=== PATIENT | female | born 1990 ===

== ENCOUNTER 2022-04-23 23:50 | Inpatient (IN) | payer OTHER, SELFPAY ==
[2022-04-24] MEDS: OLANZapine 10 MG TABLET PO (01:33)
[2022-04-24] MEDS: LORazepam 1 MG TABLET 2 MG PO (01:33)
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
[2022-04-24 06:00] VITALS: BP 122/80; PULSE 110; RESP 20; TEMP 37.1; O2SAT 99
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
--- NOTE | 2022-04-24 10:23 | HO.PSYADMNOT ---
HPI Date of Service: 04/24/22 Chief Complaint: Bipolar/Disorder Sources of Information: patient interviewed, chart reviewed and crisis/core team assessment reviewed HPI Subjective Notes: Carlson Warning and Conditional Voluntary Meds/Allergies Allergies Allergies Allergy/AdvReac Type Severity Reaction Status Date / Time tomato Allergy Intermediate Unknown Verified 04/24/22 01:05 strawberry Allergy Unknown Unknown Verified 04/24/22 01:05 sulfamethoxazole AdvReac Severe Unknown Verified 04/24/22 01:02 [From Bactrim] trimethoprim [From Bactrim] AdvReac Severe Unknown Verified 04/24/22 01:02
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
[2022-04-24 21:05] VITALS: BP 117/77; PULSE 107; TEMP 36.2; O2SAT 100
[2022-04-25] MEDS: traZODone HCL 100 MG TABLET PO (02:13)
[2022-04-25] MEDS: OLANZapine 5 MG TABLET PO ×3 (02:13→15:57)
[2022-04-25] MEDS: hydrOXYzine HCL 50 MG TABLET PO ×2 (02:20→15:57)
[2022-04-25] MEDS: Acetaminophen 325 MG TABLET 650 MG PO (02:22)
--- NOTE | 2022-04-25 04:16 | PC.NURSE ---
change in check status-patient with racing thoughts. appears to be responding to I.S. and had little relief from oral medications administered on PRN basis. exhibits racing, paranoid thoughts. is yelling out and whistling for a dog. yelling out ''it's my God given right to have a dog, go fucking get one for me'' is in constant dialogue. yelling out. statements at time make no sense and difficult to follow. difficult to console. mood lability persists from agitation to tearfulness. disruptive to roommate. swearing. swearing as she points up her middle finger. had episode of spitting on floor as if looking at someone and yelling. impulsive. place on 1:1 status.
--- NOTE | 2022-04-25 05:55 | PC.NURSE ---
patient continues with c/o of L foot pain. on further inspection a large bruise is noted outer aspect l foot.
[2022-04-25 08:25] LABS: Alanine Aminotransferase 23 U/L (0-31); Albumin Level 4.4 g/dL (3.5-5.0); Alkaline Phosphatase 58 U/L (39-117); Anion Gap 15 (12-20); Aspartate Amino Transferase 22 U/L (5-31); Bilirubin Total 0.8 mg/dL (0.0-1.0); Blood Urea Nitrogen 19 mg/dL (9-16); Calcium 9.1 mg/dL (8.4-10.2); Carbon Dioxide 22 mmol/L (22-29); Chloride 105 mmol/L (96-108); Cholesterol 113 mg/dL; Estimated Glomerular Filt Rate > 60; Glucose Fasting 128 mg/dL (60-99); HDL Cholesterol 35 mg/dL; LDL Cholesterol Calculated 69 mg/dl; Potassium 3.8 mmol/L (3.3-5.1); Sodium 138 mmol/L (135-145); Total Protein 7.3 g/dL (6.5-8.0); Triglycerides 45 mg/dL
[2022-04-25 08:31] LABS: Estimated Average Glucose 97 mg/dL
[2022-04-25 08:45] LABS: Thyroid Stimulating Hormone 0.61 uIU/mL (0.32-4.0)
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
[2022-04-25] MEDS: LORazepam 1 MG TABLET 2 MG PO ×2 (16:52→23:22)
[2022-04-25 23:00] VITALS: BP 124/63; PULSE 81; TEMP 36.7; O2SAT 95
[2022-04-25] MEDS: OLANZapine 10 MG TABLET 20 MG PO (23:21)
[2022-04-26 08:00] VITALS: BP 113/81; PULSE 112; RESP 20; TEMP 36.8; O2SAT 99
[2022-04-26] MEDS: LORazepam 1 MG TABLET 2 MG PO ×4 (08:52→22:29)
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
[2022-04-26] MEDS: Acetaminophen 325 MG TABLET 650 MG PO (17:23)
[2022-04-26 22:28] VITALS: BP 129/83; PULSE 90; RESP 20; TEMP 36.3; O2SAT 100
[2022-04-26] MEDS: OLANZapine 10 MG TABLET 20 MG PO (22:29)
[2022-04-27] MEDS: hydrOXYzine HCL 50 MG TABLET PO ×2 (01:12→20:39)
[2022-04-27] MEDS: traZODone HCL 100 MG TABLET PO (01:12)
[2022-04-27 06:32] LABS: Folate 10.4 ng/mL (> or = 4.0); Vitamin B12 345 pg/mL (200-900)
[2022-04-27] MEDS: LORazepam 1 MG TABLET 2 MG PO ×3 (08:29→17:01)
[2022-04-27 08:30] VITALS: BP 119/84; PULSE 98; RESP 17; TEMP 36.6; O2SAT 99
[2022-04-27] MEDS: Acetaminophen 325 MG TABLET 650 MG PO (09:48)
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
[2022-04-27 18:44] VITALS: BP 123/68; PULSE 87; RESP 15; TEMP 36.6; O2SAT 100
[2022-04-27] MEDS: OLANZapine ODT 10 MG TAB.RAPDIS 20 MG TRANSLINGU (20:39)
[2022-04-27] MEDS: LORazepam 1 MG TABLET PO (20:39)
[2022-04-28 08:20] VITALS: BP 104/68; PULSE 83; RESP 16; TEMP 36.7; O2SAT 98
[2022-04-28] MEDS: LORazepam 1 MG TABLET PO ×4 (08:30→22:09)
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
[2022-04-28 20:33] VITALS: BP 128/77; PULSE 112; TEMP 36.9; O2SAT 99
[2022-04-28] MEDS: OLANZapine ODT 10 MG TAB.RAPDIS 20 MG TRANSLINGU (22:09)
[2022-04-29] MEDS: OLANZapine 5 MG TABLET PO (00:36)
[2022-04-29] MEDS: hydrOXYzine HCL 50 MG TABLET PO (00:36)
[2022-04-29] MEDS: traZODone HCL 100 MG TABLET PO ×2 (02:33→22:36)
[2022-04-29 08:15] VITALS: BP 122/82; PULSE 92; RESP 16; TEMP 36.6; O2SAT 100
[2022-04-29] MEDS: LORazepam 1 MG TABLET PO ×4 (08:56→22:36)
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
[2022-04-29 18:15] LABS: Appearance Urine HAZY; Color Urine STRAW; Glucose Urine UA NEG (NEG); Leukocyte Esterase Urine 1+ (NEG); Nitrite Urine NEG (NEG); PH 6.5 (5.0-8.0); Specific Gravity - Urine 1.015 (1.005-1.025); UACC Culture Trigger YES; Urine Blood 3+ (NEG); Urine Ketones NEG (NEG); Urine Protein NEG (NEG-TRACE)
[2022-04-29 18:17] LABS: UPreg QC Valid YES; Urine Pregnancy NEGATIVE (NEGATIVE)
[2022-04-29 18:21] LABS: Bacteria Urine 3+ /LPF; Squamous Epithelial Cell Urine 3+ /LPF
[2022-04-29 18:22] LABS: UACC CULT YES
[2022-04-29 22:06] VITALS: BP 111/75; PULSE 90; RESP 16; TEMP 36.6; O2SAT 99
[2022-04-29] MEDS: OLANZapine ODT 10 MG TAB.RAPDIS 20 MG TRANSLINGU (22:36)
[2022-04-30] MEDS: LORazepam 1 MG TABLET PO ×4 (08:28→21:21)
[2022-04-30 08:30] VITALS: BP 116/62; PULSE 97; RESP 16; TEMP 36.7; O2SAT 97
[2022-04-30 12:58] VITALS: PULSE 119
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
[2022-04-30 18:00] VITALS: BP 109/75; PULSE 118; RESP 16; TEMP 36.6; O2SAT 99
[2022-04-30] MEDS: OLANZapine ODT 10 MG TAB.RAPDIS 20 MG TRANSLINGU (21:21)
[2022-05-01] MEDS: traZODone HCL 100 MG TABLET PO ×2 (02:31→23:06)
[2022-05-01] MEDS: LORazepam 1 MG TABLET PO ×5 (07:44→23:06)
[2022-05-01 07:47] VITALS: BP 117/76; PULSE 129; RESP 17; TEMP 36.7; O2SAT 99
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
[2022-05-01 20:00] VITALS: BP 119/68; PULSE 109; RESP 20; TEMP 36.7; O2SAT 100
[2022-05-01] MEDS: OLANZapine ODT 10 MG TAB.RAPDIS 20 MG TRANSLINGU (23:04)
[2022-05-02] MEDS: Acetaminophen 325 MG TABLET 650 MG PO (05:05)
[2022-05-02 08:10] VITALS: BP 115/67; PULSE 127; RESP 17; TEMP 37; O2SAT 95
[2022-05-02] MEDS: LORazepam 1 MG TABLET PO ×4 (08:13→22:29)
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
[2022-05-02 20:00] VITALS: BP 106/63; PULSE 98; RESP 18; TEMP 36.6; O2SAT 98
[2022-05-02 20:55] LABS: Appearance Urine CLEAR; Color Urine YELLOW; Glucose Urine UA NEG (NEG); Leukocyte Esterase Urine NEG (NEG); Nitrite Urine NEG (NEG); PH 6.5 (5.0-8.0); Urine Blood NEG (NEG); Urine Ketones NEG (NEG); Urine Protein NEG (NEG-TRACE)
[2022-05-02] MEDS: traZODone HCL 100 MG TABLET PO (22:29)
[2022-05-02] MEDS: OLANZapine ODT 10 MG TAB.RAPDIS 20 MG TRANSLINGU (22:29)
[2022-05-02] MEDS: hydrOXYzine HCL 50 MG TABLET PO (22:29)
[2022-05-03] MEDS: LORazepam 1 MG TABLET PO ×6 (00:34→21:22)
[2022-05-03 08:22] VITALS: BP 111/73; PULSE 114; RESP 17; TEMP 36.7; O2SAT 100
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
[2022-05-03 21:00] VITALS: BP 108/58; PULSE 120; RESP 16; TEMP 36.6; O2SAT 98
[2022-05-03] MEDS: OLANZapine ODT 10 MG TAB.RAPDIS 20 MG TRANSLINGU (21:22)
[2022-05-04] MEDS: OLANZapine 5 MG TABLET PO (01:22)
[2022-05-04] MEDS: hydrOXYzine HCL 50 MG TABLET PO (01:22)
[2022-05-04 07:49] VITALS: BP 118/69; PULSE 100; RESP 17; TEMP 36.6; O2SAT 100
[2022-05-04] MEDS: LORazepam 1 MG TABLET PO ×5 (07:52→21:22)
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
[2022-05-04 20:45] VITALS: BP 113/69; PULSE 103; RESP 18; TEMP 36.7; O2SAT 100
[2022-05-04] MEDS: Melatonin 3 MG TABLET PO (21:22)
[2022-05-04] MEDS: OLANZapine ODT 10 MG TAB.RAPDIS 20 MG TRANSLINGU (21:23)
[2022-05-05] MEDS: hydrOXYzine HCL 50 MG TABLET PO ×2 (00:29→12:03)
[2022-05-05] MEDS: OLANZapine 5 MG TABLET PO ×2 (00:29→12:03)
[2022-05-05] MEDS: LORazepam 1 MG TABLET PO ×5 (08:47→22:45)
[2022-05-05 11:00] VITALS: BP 116/69; PULSE 112; RESP 16; TEMP 36.2; O2SAT 97
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
[2022-05-05] MEDS: Lithium Carbonate ER 300 MG TABLET.ER PO (14:14)
[2022-05-05] MEDS: OLANZapine ODT 10 MG TAB.RAPDIS 20 MG TRANSLINGU (22:45)
[2022-05-05] MEDS: Lithium Carbonate ER 450 MG TABLET.ER PO (22:45)
[2022-05-05] MEDS: Melatonin 3 MG TABLET PO (22:46)
[2022-05-05 22:49] VITALS: BP 108/74; PULSE 120; TEMP 36.7; O2SAT 96
[2022-05-06] MEDS: hydrOXYzine HCL 50 MG TABLET PO ×3 (02:30→22:35)
[2022-05-06] MEDS: Acetaminophen 325 MG TABLET 650 MG PO (07:07)
[2022-05-06 08:00] VITALS: BP 108/71; PULSE 108; RESP 18; TEMP 36.4; O2SAT 100
[2022-05-06] MEDS: Lithium Carbonate ER 450 MG TABLET.ER PO ×2 (08:32→22:35)
[2022-05-06] MEDS: LORazepam 1 MG TABLET PO ×4 (08:32→22:36)
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
[2022-05-06] MEDS: OLANZapine 5 MG TABLET PO (15:48)
[2022-05-06 22:00] VITALS: BP 130/72; PULSE 110; TEMP 36.8; O2SAT 99
[2022-05-06] MEDS: OLANZapine ODT 10 MG TAB.RAPDIS 20 MG TRANSLINGU (22:35)
[2022-05-06] MEDS: traZODone HCL 100 MG TABLET PO (22:35)
[2022-05-06] MEDS: Melatonin 3 MG TABLET PO (22:36)
--- NOTE | 2022-05-07 06:04 | PC.NURSE ---
signed 3 day notice
[2022-05-07] MEDS: Lithium Carbonate ER 450 MG TABLET.ER PO ×2 (08:43→22:21)
[2022-05-07] MEDS: LORazepam 1 MG TABLET PO ×4 (08:44→22:22)
[2022-05-07 08:57] VITALS: BP 113/74; PULSE 114; RESP 20; TEMP 36.7; O2SAT 99
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
[2022-05-07 18:00] VITALS: BP 112/69; PULSE 104; TEMP 36.2; O2SAT 99
[2022-05-07] MEDS: OLANZapine ODT 10 MG TAB.RAPDIS 20 MG TRANSLINGU (22:21)
[2022-05-07] MEDS: Melatonin 3 MG TABLET PO (22:22)
[2022-05-08] MEDS: Acetaminophen 325 MG TABLET 650 MG PO ×2 (00:49→17:31)
[2022-05-08] MEDS: OLANZapine 5 MG TABLET PO (04:42)
[2022-05-08] MEDS: Lithium Carbonate ER 450 MG TABLET.ER PO ×2 (08:49→22:54)
[2022-05-08] MEDS: LORazepam 1 MG TABLET PO ×3 (08:49→22:54)
[2022-05-08 09:15] VITALS: BP 117/76; PULSE 77; RESP 18; TEMP 36.6; O2SAT 98
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
[2022-05-08 22:51] VITALS: BP 105/66; PULSE 108; RESP 14; TEMP 36.6; O2SAT 100
[2022-05-08] MEDS: Melatonin 3 MG TABLET PO (22:53)
[2022-05-08] MEDS: hydrOXYzine HCL 50 MG TABLET PO (22:53)
[2022-05-08] MEDS: OLANZapine ODT 10 MG TAB.RAPDIS 20 MG TRANSLINGU (22:54)
[2022-05-09 07:55] VITALS: BP 105/78; PULSE 99; RESP 16; TEMP 36.6; O2SAT 100
[2022-05-09] MEDS: Lithium Carbonate ER 450 MG TABLET.ER PO ×2 (08:12→22:18)
[2022-05-09] MEDS: LORazepam 1 MG TABLET PO ×2 (08:12→22:18)
[2022-05-09] MEDS: Acetaminophen 325 MG TABLET 650 MG PO (10:08)
[2022-05-09] MEDS: OLANZapine 5 MG TABLET PO (20:31)
[2022-05-09] MEDS: Melatonin 3 MG TABLET PO (22:18)
[2022-05-09] MEDS: hydrOXYzine HCL 50 MG TABLET PO (22:18)
[2022-05-09] MEDS: OLANZapine ODT 10 MG TAB.RAPDIS 20 MG TRANSLINGU (22:19)
[2022-05-09 22:22] VITALS: BP 128/72; PULSE 76; TEMP 36.4; O2SAT 96
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
[2022-05-10 08:00] VITALS: BP 117/78; PULSE 101; RESP 18; TEMP 36.6; O2SAT 100
[2022-05-10] MEDS: Lithium Carbonate ER 450 MG TABLET.ER PO ×2 (08:25→22:00)
[2022-05-10] MEDS: LORazepam 0.5 MG TABLET PO ×2 (08:25→22:00)
[2022-05-10] MEDS: Acetaminophen 325 MG TABLET 650 MG PO (09:22)
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
[2022-05-10] MEDS: hydrOXYzine HCL 50 MG TABLET PO (18:22)
[2022-05-10] MEDS: OLANZapine ODT 10 MG TAB.RAPDIS 20 MG TRANSLINGU (21:59)
[2022-05-10] MEDS: Melatonin 3 MG TABLET PO (21:59)
[2022-05-10 22:02] VITALS: BP 118/62; PULSE 107; TEMP 36.8; O2SAT 96
[2022-05-10] MEDS: OLANZapine 5 MG TABLET PO (23:42)
[2022-05-11] MEDS: hydrOXYzine HCL 50 MG TABLET PO ×2 (02:30→10:13)
[2022-05-11 07:33] LABS: MANUAL DIFF FLAG NO
[2022-05-11 07:41] LABS: Basophils Absolute Auto 0.1 X10*3/uL (0.0-0.2); Basophils Percent Auto 0.6 % (0-2); Eosinophils Absolute Auto 0.5 X10*3/uL (0.0-0.4); Eosinophils Percent Auto 5.7 % (0-4); Hemoglobin 12.5 g/dl (12.0-16.0); Imm Gran Abs Auto 0.03 X10*3/uL (0.00-0.03); Imm Gran Pct Auto 0.3 % (0.0-0.4); Lymphocytes Absolute Auto 3.1 X10*3/uL (1.2-4.9); Lymphocytes Percent Auto 32.7 % (20-40); Mean Corpuscular HGB Conc 33.8 g/dl (31.0-35.0); Mean Corpuscular Hemoglobin 29.5 pg (27.0-33.0); Mean Corpuscular Volume 87.3 fL (80.0-98.0); Mean Platelet Volume 9.1 fL (9.4-12.3); Monocytes Absolute Auto 1.1 X10*3/uL (0.1-1.2); Monocytes Percent Auto 11.7 % (2-11); Neutrophils Absolute Auto 4.6 x10*3/uL (2.0-8.3); Platelet Count 332 X10*3/uL (160-400); Red Blood Count 4.24 X10*6/uL (4.20-5.50); White Blood Count 9.4 X10*3/uL (4.8-10.8)
[2022-05-11 07:54] LABS: Lithium 0.69 mmol/L (0.60-1.20)
[2022-05-11 07:58] LABS: Alanine Aminotransferase 87 U/L (0-31); Albumin Level 4.4 g/dL (3.5-5.0); Alkaline Phosphatase 52 U/L (39-117); Anion Gap 12 (12-20); Aspartate Amino Transferase 41 U/L (5-31); Bilirubin Total 0.5 mg/dL (0.0-1.0); Blood Urea Nitrogen 14 mg/dL (9-16); Calcium 9.3 mg/dL (8.4-10.2); Carbon Dioxide 24 mmol/L (22-29); Chloride 106 mmol/L (96-108); Estimated Glomerular Filt Rate > 60; Glucose Fasting 86 mg/dL (60-99); Potassium 4.1 mmol/L (3.3-5.1); Sodium 138 mmol/L (135-145); Total Protein 7.1 g/dL (6.5-8.0)
[2022-05-11 08:18] LABS: TSH reflex Free T4 1.41 uIU/mL (0.32-4.0)
[2022-05-11 08:30] VITALS: BP 133/78; PULSE 105; RESP 18; TEMP 36.5; O2SAT 100
[2022-05-11] MEDS: Lithium Carbonate ER 450 MG TABLET.ER PO (08:37)
[2022-05-11] MEDS: OLANZapine 5 MG TABLET PO ×2 (10:13→15:27)
[2022-05-11 20:21] VITALS: BP 113/66; PULSE 100; RESP 16; TEMP 36.7; O2SAT 99
[2022-05-11] MEDS: Melatonin 3 MG TABLET PO (21:17)
[2022-05-11] MEDS: Lithium Carbonate ER 300 MG TABLET.ER 600 MG PO (21:17)
[2022-05-11] MEDS: OLANZapine ODT 10 MG TAB.RAPDIS 20 MG TRANSLINGU (21:17)
[2022-05-11] MEDS: LORazepam 0.5 MG TABLET PO (21:17)
[2022-05-11] MEDS: Propranolol HCL 20 MG TABLET PO (21:17)
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
[2022-05-12] MEDS: OLANZapine 5 MG TABLET PO ×2 (02:47→21:03)
[2022-05-12] MEDS: hydrOXYzine HCL 50 MG TABLET PO (06:26)
[2022-05-12 08:30] VITALS: BP 101/78; PULSE 98; RESP 18; TEMP 36.4; O2SAT 99
[2022-05-12] MEDS: Lithium Carbonate ER 300 MG TABLET.ER 600 MG PO ×2 (08:42→21:02)
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
[2022-05-12 15:08] VITALS: BP 135/72; PULSE 103; RESP 18; O2SAT 100
[2022-05-12] MEDS: Propranolol HCL 10 MG TABLET PO ×2 (15:09→21:03)
[2022-05-12 20:30] VITALS: BP 110/74; PULSE 100; RESP 18; TEMP 36.6; O2SAT 99
[2022-05-12] MEDS: Melatonin 3 MG TABLET PO (21:02)
[2022-05-12] MEDS: OLANZapine ODT 10 MG TAB.RAPDIS 20 MG TRANSLINGU (21:02)
[2022-05-13] MEDS: hydrOXYzine HCL 50 MG TABLET PO ×2 (02:14→21:34)
[2022-05-13 06:00] VITALS: BP 120/71; PULSE 100; RESP 18; TEMP 36.8; O2SAT 100
[2022-05-13] MEDS: Propranolol HCL 10 MG TABLET PO ×3 (08:37→21:34)
[2022-05-13] MEDS: Lithium Carbonate ER 300 MG TABLET.ER 600 MG PO ×2 (08:37→21:35)
[2022-05-13 14:50] VITALS: BP 117/67; PULSE 97; RESP 18; O2SAT 97
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
[2022-05-13 21:30] VITALS: BP 115/72; PULSE 85; RESP 18; TEMP 36.6; O2SAT 99
[2022-05-13] MEDS: Melatonin 3 MG TABLET PO (21:34)
[2022-05-13] MEDS: OLANZapine 5 MG TABLET PO (21:34)
[2022-05-13] MEDS: OLANZapine ODT 10 MG TAB.RAPDIS 20 MG TRANSLINGU (21:35)
[2022-05-14 07:00] VITALS: BMI 24.0
[2022-05-14 08:08] VITALS: BP 106/57; PULSE 89; RESP 15; TEMP 36.3; O2SAT 100
[2022-05-14] MEDS: Lithium Carbonate ER 300 MG TABLET.ER 600 MG PO ×2 (08:09→22:15)
[2022-05-14] MEDS: Propranolol HCL 10 MG TABLET PO ×3 (08:09→22:14)
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
[2022-05-14 15:10] VITALS: BP 114/62; PULSE 97
[2022-05-14] MEDS: OLANZapine ODT 10 MG TAB.RAPDIS 20 MG TRANSLINGU (22:14)
[2022-05-14] MEDS: Melatonin 3 MG TABLET PO (22:14)
[2022-05-14] MEDS: OLANZapine 5 MG TABLET PO (22:15)
[2022-05-14] MEDS: hydrOXYzine HCL 50 MG TABLET PO (22:15)
[2022-05-14 22:17] VITALS: BP 143/63; PULSE 110; RESP 14; TEMP 36.4; O2SAT 97
[2022-05-15 08:00] VITALS: BP 112/61; PULSE 88; RESP 17; TEMP 36.3; O2SAT 100
[2022-05-15] MEDS: Propranolol HCL 10 MG TABLET PO ×3 (08:41→22:21)
[2022-05-15] MEDS: Lithium Carbonate ER 300 MG TABLET.ER 600 MG PO ×2 (08:41→22:21)
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
[2022-05-15 20:27] VITALS: BP 101/59; PULSE 94; RESP 16; TEMP 36.6; O2SAT 97
[2022-05-15 22:15] VITALS: BP 106/66; PULSE 91; RESP 16; TEMP 36.3; O2SAT 98
[2022-05-15] MEDS: OLANZapine ODT 10 MG TAB.RAPDIS 20 MG TRANSLINGU (22:21)
[2022-05-15] MEDS: OLANZapine 5 MG TABLET PO (22:49)
[2022-05-15] MEDS: hydrOXYzine HCL 50 MG TABLET PO (22:49)
[2022-05-15] MEDS: Melatonin 3 MG TABLET PO (22:49)
[2022-05-16 09:07] VITALS: BP 107/71; PULSE 83; RESP 18; TEMP 36.5; O2SAT 99
[2022-05-16] MEDS: Propranolol HCL 10 MG TABLET PO ×2 (09:15→20:21)
[2022-05-16] MEDS: Lithium Carbonate ER 300 MG TABLET.ER 600 MG PO ×2 (09:15→20:21)
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
[2022-05-16] MEDS: hydrOXYzine HCL 50 MG TABLET PO ×2 (16:30→21:40)
[2022-05-16 20:05] VITALS: BP 105/60; PULSE 96; RESP 18; TEMP 36.6; O2SAT 100
[2022-05-16] MEDS: OLANZapine ODT 10 MG TAB.RAPDIS 20 MG TRANSLINGU (20:21)
[2022-05-16] MEDS: Melatonin 3 MG TABLET PO (21:40)
[2022-05-16] MEDS: OLANZapine 5 MG TABLET PO (21:40)
[2022-05-16] MEDS: hydrOXYzine HCL 25 MG TABLET PO (23:16)
[2022-05-17] MEDS: hydrOXYzine HCL 50 MG TABLET PO ×2 (04:18→11:45)
[2022-05-17 06:00] VITALS: BP 106/68; PULSE 104; RESP 18; TEMP 36.7; O2SAT 100
[2022-05-17] MEDS: Lithium Carbonate ER 300 MG TABLET.ER 600 MG PO ×2 (09:18→21:37)
[2022-05-17] MEDS: Propranolol HCL 10 MG TABLET PO ×2 (09:18→21:37)
[2022-05-17] MEDS: OLANZapine 5 MG TABLET PO ×2 (12:19→22:30)
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
[2022-05-17 20:30] VITALS: BP 119/69; PULSE 102; RESP 18; TEMP 36.8; O2SAT 97
[2022-05-17] MEDS: OLANZapine ODT 10 MG TAB.RAPDIS 20 MG TRANSLINGU (21:37)
[2022-05-17] MEDS: Melatonin 3 MG TABLET PO (21:37)
[2022-05-18] MEDS: hydrOXYzine HCL 50 MG TABLET PO (00:18)
[2022-05-18 06:00] VITALS: BP 107/63; PULSE 91; RESP 20; TEMP 36.7; O2SAT 99
[2022-05-18] MEDS: Propranolol HCL 10 MG TABLET PO ×2 (07:56→21:30)
[2022-05-18] MEDS: Lithium Carbonate ER 300 MG TABLET.ER 600 MG PO ×2 (07:56→21:29)
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
[2022-05-18] MEDS: OLANZapine 5 MG TABLET PO (13:55)
[2022-05-18 19:49] VITALS: BP 112/56; PULSE 90; RESP 17; TEMP 36.6; O2SAT 97
[2022-05-18] MEDS: OLANZapine 7.5 MG TABLET 15 MG PO (21:30)
[2022-05-18] MEDS: Melatonin 3 MG TABLET PO (21:31)
[2022-05-18] MEDS: Acetaminophen 325 MG TABLET 650 MG PO (22:07)
[2022-05-19] MEDS: Lithium Carbonate ER 300 MG TABLET.ER 600 MG PO (08:00)
[2022-05-19] MEDS: Propranolol HCL 10 MG TABLET PO (08:01)
[2022-05-19 08:23] VITALS: BP 109/67; PULSE 89; RESP 16; TEMP 36.5; O2SAT 100
[2022-05-19 08:41] LABS: MANUAL DIFF FLAG NO
[2022-05-19 09:02] LABS: Basophils Absolute Auto 0.1 X10*3/uL (0.0-0.2); Basophils Percent Auto 0.6 % (0-2); Eosinophils Absolute Auto 0.8 X10*3/uL (0.0-0.4); Eosinophils Percent Auto 7.6 % (0-4); Hematocrit 38.8 % (37.0-47.0); Hemoglobin 12.7 g/dl (12.0-16.0); Imm Gran Abs Auto 0.03 X10*3/uL (0.00-0.03); Imm Gran Pct Auto 0.3 % (0.0-0.4); Lymphocytes Absolute Auto 2.7 X10*3/uL (1.2-4.9); Lymphocytes Percent Auto 25.5 % (20-40); Mean Corpuscular HGB Conc 32.7 g/dl (31.0-35.0); Mean Corpuscular Hemoglobin 28.7 pg (27.0-33.0); Mean Corpuscular Volume 87.8 fL (80.0-98.0); Mean Platelet Volume 9.2 fL (9.4-12.3); Monocytes Absolute Auto 1.4 X10*3/uL (0.1-1.2); Monocytes Percent Auto 13.8 % (2-11); Neutrophils Absolute Auto 5.5 x10*3/uL (2.0-8.3); Neutrophils Percent Auto 52.2 % (45-73); Platelet Count 324 X10*3/uL (160-400); Red Blood Count 4.42 X10*6/uL (4.20-5.50); White Blood Count 10.4 X10*3/uL (4.8-10.8)
[2022-05-19 09:46] LABS: Lithium 0.85 mmol/L (0.60-1.20)
[2022-05-19 10:03] LABS: Alanine Aminotransferase 131 U/L (0-31); Albumin Level 4.5 g/dL (3.5-5.0); Alkaline Phosphatase 60 U/L (39-117); Anion Gap 13 (12-20); Aspartate Amino Transferase 52 U/L (5-31); Bilirubin Direct 0.2 mg/dL (0.0-0.5); Bilirubin Total 0.4 mg/dL (0.0-1.0); Blood Urea Nitrogen 20 mg/dL (9-16); Calcium 9.6 mg/dL (8.4-10.2); Carbon Dioxide 23 mmol/L (22-29); Chloride 106 mmol/L (96-108); Creatinine Clr Calc Pharmacy 81.9; Estimated Glomerular Filt Rate > 60; Glucose Random 68 mg/dL (60-115); Potassium 4.5 mmol/L (3.3-5.1); Sodium 137 mmol/L (135-145); Total Protein 7.4 g/dL (6.5-8.0)
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
[2022-05-19] MEDS: hydrOXYzine HCL 50 MG TABLET PO (11:57)
== END 2022-05-19 13:28 | disposition home or self-care (01) | DRG 753 ==
LOC: HO.PM5 04-24 13:07 → HO.PADLT16 04-24 17:44
PROVIDERS: Clinical Nurse Specialist Psychiatric/Mental Health; Psychiatry & Neurology Psychiatry; Registered Nurse; Social Worker; Admitting Provider Psychiatry & Neurology Psychiatry; Visit Provider Psychiatry & Neurology Psychiatry
DX: F31.2 Bipolar disorder, current episode manic severe with psychotic features (principal); F41.1 Generalized anxiety disorder; Z88.1 Allergy status to other antibiotic agents; Z88.2 Allergy status to sulfonamides; Z79.899 Other long term (current) drug therapy
CPT/HCPCS: 36415; 80048; 80053; 80061; 80076; 80178; 81001; 81003; 81025; 82607; 82746; 83036; 84443; 85025; 87086